=== PATIENT | male | born 1960 | race Caucasian/White ===

== ENCOUNTER 2020-11-11 13:31 | Emergency (ER) | payer MEDICAID ==
[~2020-11-11] VITALS: Ht 175.3 cm; Wt 81.8 kg
[2020-11-11] MEDS ORDERED: TRAZ-252 PO (13:38)
[2020-11-11] MEDS ORDERED: ARIP10TA38 PO (13:38)
[2020-11-11 17:56] VITALS: BP 124/74
== END 2020-11-11 18:14 | disposition home or self-care (01) ==
LOC: EMS 13:40
DX: F41.9 Anxiety disorder, unspecified (principal); F31.9 Bipolar disorder, unspecified
CPT/HCPCS: 99283; Z7502